=== PATIENT | male | born 1955 | race Two or more races ===

== ENCOUNTER 2018-07-10 15:19 | Emergency (ER) | payer OTHER ==
[2018-07-10] MEDS ORDERED: METF-452 PO (15:31)
[2018-07-10] MEDS ORDERED: SIMV-49 PO (15:31)
[2018-07-10] MEDS ORDERED: SITA25TA PO (15:31)
[2018-07-10] MEDS ORDERED: GLY5 FT (15:31)
--- NOTE | 2018-07-10 15:31 | ER Report ---
History and Physical Time Seen By MD: 15:32 Hx. of Stated Complaint: DROPPED A BOX ON TOES L SIDE, BRUISED L KNEE AND SCRAPED L KNEE HPI/ROS CHIEF COMPLAINT: Toe injury HISTORY OF PRESENT ILLNESS: This is a 62-year-old male who presents to the emergency department for a toe injury. Patient states that about 30 minutes prior to arrival he tripped and injured his 2nd, 3rd and 4th toes on the left foot. Patient states the 2nd toe "felt out of place so I pushed back in". Patient ambulates with a limp. No previous injuries to the foot or toes. He does have a small abrasion to the left patella, nothing that would require repair. No fevers or chills. No nausea or vomiting. No other concerns. REVIEW OF SYSTEMS: Respiratory: No cough, no dyspnea. Cardiovascular: No chest pain, no palpitations. Gastrointestinal: No vomiting, no abdominal pain. Musculoskeletal: As above. Allergies: Uncoded Allergies: ANESTHESIA (Adverse Reaction, Unknown, 07/10/18) Home Meds Reported Medications Glyburide (GLYBURIDE) 5 Mg Tab, 5 MG FT, TAB 07/10/18 Simvastatin (SIMVASTATIN) 20 Mg Tablet, 5 MG PO HS, TAB 07/10/18 Sitagliptin Phosphate (JANUVIA) 25 Mg Tablet, PO QDAY 07/10/18 Metformin Hcl (METFORMIN HCL) 1,000 Mg Tablet, 1 TAB PO BID, TAB 07/10/18 Past Medical/Surgical History The patient has a past medical and surgical history of heavy smoking since age 20, wears glasses, type II diabetes, left index finger surgery. Reviewed Nurses Notes: Yes Hx Substance Use Disorder: No Hx Alcohol Use: No Constitutional Vital Sign - Last 24 Hours 07/10/18 07/10/18 07/10/18 07/10/18 15:19 15:25 15:26 15:30 Temp 98.3 Pulse ??? 82 Resp 18 B/P (MAP) 142/82 142/82 (102) 132/105 (114) Pulse Ox 92 O2 Delivery Room Air 07/10/18 07/10/18 07/10/18 07/10/18 15:34 15:49 16:00 16:04 Pulse 82 ??? 77 B/P (MAP) 121/85 (97) Pulse Ox 95 93 07/10/18 07/10/18 07/10/18/2/18 16:19 16:30 16:34 16:49 Pulse 69 69 70 B/P (MAP) 127/89 (102) Pulse Ox 92 92 93 07/10/18 07/10/18 17:00 17:04 Pulse 68 B/P (MAP) 115/72 (86) Pulse Ox 95 Physical Exam General Appearance: The patient is alert, has no immediate need for airway protection and no current signs of toxicity. Eyes: Pupils equal and round no injection. Respiratory: Chest is non tender, lungs are clear to auscultation. Cardiac: regular rate and rhythm. Gastrointestinal: Abdomen is soft and non tender, no masses, bowel sounds normal. Musculoskeletal: Neck: Neck is supple and non tender. Extremities pain to the 2nd, 3rd and 4th toe at the MTP joints. No obvious deformities, no swelling, no crepitus. Skin: No rashes or lesions. [ ] DIFFERENTIAL DIAGNOSIS: After history and physical exam differential diagnosis was considered for fracture, dislocation, contusion. Medical Decision Making EKG/Imaging Imaging EXAMINATION: Left foot 3 views HISTORY: Second, third, and fourth toe injury COMPARISON: None. FINDINGS: Dislocation of the left second MTP joint. The base of the proximal phalanx is displaced lateral to the metatarsal head. No associated fracture. There is an oblique fracture along the neck of the left third metatarsal with mild angulation and foreshortening. No acute osseous findings along the left fourth toe. Moderate hallux valgus deformity with mild chronic degenerative changes at the first MTP joint. There are mild scattered degenerative changes at multiple IP joints of the left foot. IMPRESSION: 1. Dislocation of the left second MTP joint. The base of the proximal phalanx is displaced lateral to the metatarsal head. 2. Oblique fracture of the left third metatarsal neck with mild angulation and foreshortening. 3. No other acute osseous findings in the left foot. Report Dictated By: Johnny Granda MD at 07/10/2018 3:55 PM Report E-Signed By: Johnny Granda MD at 07/10/2018 3:59 PM [id number] Findings: 2 views of the left foot. Interval reduction of the 2nd MTP dislocation. Oblique fracture through the distal shaft of the 3rd metatarsal with decreased displacement and angulation. 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 Impression: Interval reduction of the 2nd MTP dislocation and decreased displacement and angulation of the 3rd metatarsal fracture. Report Dictated By: Etta Velasquez MD at 07/10/2018 4:48 PM Report E-Signed By: Etta Velasquez MD at 07/10/2018 4:50 PM WSN:[email or web address] ED Course/Re-evaluation ED Course The patient was admitted to room. A history physical obtained. Differential diagnoses were considered. An x-ray of the left foot showing that the 2nd toe was dislocated at the MTP joint and a 3rd toe had a metatarsal fracture. I reviewed the results with the patient, I was able to gently reduce the dislocation, patient tolerated very well, postreduction x-ray showing the 2nd toe in good alignment and decreased displacement and angulation of the fracture. The patient was placed in a walking boot, instructed to take ibuprofen or Tylenol as needed for pain, follow-up with [facility] within 1 week for reevaluation. Patient exposed understanding was discharged home. Decision to Disposition Date: Jul 10, 2018 Decision to Disposition Time: 17:05 Depart Departure Latest Vital Signs Vital Signs Date Time Temp Pulse Resp B/P (MAP) Pulse Ox O2 Delivery O2 Flow Rate FiO2 07/10/18 17:04 68 95 07/10/18 17:00 115/72 (86) 07/10/18 15:25 98.3 18 Room Air Impression: Primary Impression: Toe joint dislocation Additional Impression: Toe fracture, left Condition: Improved Disposition: HOME OR SELF-CARE Referrals: [facility] 1 Week Patient Instructions: Toe Fracture (ED) Additional Instructions: You did dislocate your second toe, we did successfully reduce it. You do have a fracture of the 3rd toe. Wear the walking boot for comfort and until you follow up with [facility], within one week. You can take Ibuprofen or Tylenol as needed for pain. Drink plenty of water. Get plenty of rest. Return to the ED for any other concerns or worsening symptoms. Problem Qualifiers Primary Impression: Toe joint dislocation Encounter type: initial encounter Laterality: left Qualified Codes: S93.105A - Unspecified dislocation of left toe(s), initial encounter Additional Impression: Toe fracture, left Encounter type: initial encounter Toe: lesser toe Fracture type: closed Phalanx: middle Fracture alignment: nondisplaced Qualified Codes: S92.525A - Nondisplaced fracture of middle phalanx of left lesser toe(s), initial encounter for closed fracture ETTA DOMINGO-CARY Jul 10, 2018 15:31
[2018-07-10] MEDS ORDERED: DIPHTH/TETANUS/ACEL. PERTUSSIS IM ONLY ONE (15:45)
--- NOTE | 2018-07-10 16:03 | RADIOLOGY IMAGING REPORT ---
FAC[facility] PATIENT NAME: Fausto Currie : 1955 MR: [id number] V: [id number] EXAM DATE: ORDERING PHYSICIAN: ETTA DOMINGO TECHNOLOGIST: Location[place] [facility] [place] Patient: Fausto Currie : 1955 Visit/Account:[id number] Date of Sevice: 07/10/2018 EXAMINATION: Left foot 3 views HISTORY: Second, third, and fourth toe injury COMPARISON: None. FINDINGS: Dislocation of the left second MTP joint. The base of the proximal phalanx is displaced lateral to th e metatarsal head. No associated fracture. There is an oblique fracture along the neck of the left third metatarsal with mild angulation and for eshortening. No acute osseous findings along the left fourth toe. Moderate hallux valgus deformity with mild chronic degenerative changes at the first MTP joint. There are mild scattered degenerative changes at multiple IP joints of the left foot. IMPRESSION: 1. Dislocation of the left second MTP joint. The base of the proximal phalanx is displaced lateral to the metatarsal head. 2. Oblique fracture of the left third metatarsal neck with mild angulation and foreshortening. 3. No other acute osseous findings in the left foot. Report Dictated By: Johnny Granda MD at 07/10/2018 3:55 PM Report E-Signed By: Johnny Granda MD at 07/10/2018 3:59 PM WSN:[id number]
--- NOTE | 2018-07-10 16:54 | RADIOLOGY IMAGING REPORT ---
FACILITY: [facility] PATIENT NAME: Fausto Currie : 1955 MR: [id number] V: [id number] EXAM DATE: ORDERING PHYSICIAN: ETTA DOMINGO TECHNOLOGIST: Location: [facility] [place] Patient: Fausto Currie : 1955 Visit/Account:[id number] Date of Sevice: 07/10/2018 FOOT 2 VIEW LEFT Indication: Left foot pain. Comparison: 07/10/2018 at 3:41 PM. Findings: 2 views of the left foot. Interval reduction of the 2nd MTP dislocation. Oblique fracture through the distal shaft of the 3rd metatarsal with decreased displacement and angul ation. 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 Impression: Interval reduction of the 2nd MTP dislocation and decreased displacement and angulation o f the 3rd metatarsal fracture. Report Dictated By: Etta Velasquez MD at 07/10/2018 4:48 PM Report E-Signed By: Etta Velasquez MD at 07/10/2018 4:50 PM WSN:[id number]
[2018-07-10 17:00] VITALS: BP 115/72
== END 2018-07-10 17:20 | disposition home or self-care (01) ==
LOC: ER 15:44
DX: S93.105A Unspecified dislocation of left toe(s), initial encounter (principal); S92.525A Nondisplaced fracture of middle phalanx of left lesser toe(s), initial encounter for closed fracture
CPT/HCPCS: 28630; 99283